=== PATIENT | male | born 1990 | race Caucasian/White ===

== ENCOUNTER 2023-06-09 21:33 | Emergency (ER) | payer OTHER ==
--- NOTE | 2023-06-09 21:57 | ED ---
Abdominal Pain HPI - General Source: patient, family, RN notes reviewed <Nadege Bonner - Last Filed: 06/09/23 21:56> - General Source: patient, family, RN notes reviewed Mode of arrival: ambulatory Limitations: no limitations <Yao Lee - Last Filed: 06/11/23 14:44> - General Stated Complaint: Abdominal Pain Time Seen by Provider: 06/09/23 21:56 - History of Present Illness Initial Comments: Patient is a 32-year-old male presented ER with chief complaint of abdominal pain. Patient states he started experiencing indigestion earlier today and reports it moved up into his chest. Patient does endorse shortness of breath. Patient did take Tums without relief. Patient is very worried he is having a heart attack. Patient denies any fevers, chills, night sweats. (Nadege Bonner) 32-year-old male presents emergency Department chief complaint abdominal pain. Patient states it's burning sensation in his stomach that radiates up in his throat. Patient states that he did take some Tums which initially did not help but has helped. Patient became very anxious because of this. Patient denies any change in bowel habits states she is nauseated states that symptoms have worsen over the last 10 days when he eats. (Yao Lee) - Related Data Home Medications Medication Instructions Recorded Confirmed ARIPiprazole [Abilify] 10 mg PO BID 02/27/23 02/27/23 Divalproex ER [Depakote ER] 1,000 mg PO DAILY 02/27/23 02/27/23 QUEtiapine [SEROquel] 200 mg PO HS 02/27/23 02/27/23 Previous Rx's Medication Instructions Recorded QUEtiapine [SEROquel] 300 mg PO DAILY 30 Days #30 tab 03/04/23 Famotidine [Pepcid] 20 mg PO BID #28 tablet 06/10/23 Sucralfate [Carafate] 1 gm PO BID #20 tablet 06/10/23 Allergies Allergy/AdvReac Type Severity Reaction Status Date / Time Iodinated Contrast Media Allergy Rash/Hives Verified 06/09/23 22:02 iodine Allergy Rash/Hives Verified 06/09/23 22:02 Review of Systems ROS Other: All systems not noted in ROS Statement are negative. <Nadege Bonner - Last Filed: 06/09/23 21:56> ROS Other: All systems not noted in ROS Statement are negative. <Yao Lee - Last Filed: 06/11/23 14:44> ROS Statement: Those systems with pertinent positive or pertinent negative responses have been documented in the HPI. 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 History of Any Multi-Drug Resistant Organisms: None Reported Past Surgical History: No Surgical Hx Reported Past Anesthesia/Blood Transfusion Reactions: No Reported Reaction Past Psychological History: Anxiety, Depression, Schizoaffective Disorder Smoking Status: Current every day smoker Past Alcohol Use History: None Reported Past Drug Use History: None Reported <Nadege Bonner - Last Filed: 06/09/23 21:56> General Exam <Nadege Bonner - Last Filed: 06/09/23 21:56> Limitations: no limitations General appearance: alert, in no apparent distress Head exam: Present: atraumatic, normocephalic, normal inspection Respiratory exam: Present: normal lung sounds bilaterally. Absent: respiratory distress, wheezes, rales, rhonchi, stridor Cardiovascular Exam: Present: regular rate, normal rhythm, normal heart sounds. Absent: systolic murmur, diastolic murmur, rubs, gallop, clicks GI/Abdominal exam: Present: soft, tenderness (Epigastric), normal bowel sounds. Absent: distended, guarding, rebound, rigid Back exam: Absent: CVA tenderness (R), CVA tenderness (L) <Yao Lee - Last Filed: 06/11/23 14:44> - General Exam Comments Initial Comments: Visual Physical Exam Vital signs reviewed General: Well-appearing, nontoxic, no acute distress. Anxious Head: Normocephalic, atraumatic Eyes: PERRLA, EOMI ENT: Airway patent Chest: Nonlabored breathing Skin: No visual rash, normal skin tone Neuro: Alert and oriented 3 Musculoskeletal: No gross abnormalities (Nadege Bonner) Course Vital Signs 06/09/23 06/10/23 22:00 05:42 Temperature 97.6 F Pulse Rate 95 93 Respiratory 18 18 Rate Blood Pressure 123/70 120/80 O2 Sat by Pulse 98 98 Oximetry Medical Decision Making <Nadege Bonner - Last Filed: 06/09/23 21:56> - Lab Data Result diagrams: 06/09/23 22:45 06/09/23 22:45 - EKG Data -: EKG Interpreted by Me <Yao Lee - Last Filed: 06/11/23 14:44> - Medical Decision Making I performed the quick note portion of the exam. Electronically signed by Nadege Bonner PA-C (Nadege Bonner) Was pt. sent in by a medical professional or institution (MIRIAN Miranda, JOINER APPRENTICE, urgent care, hospital, or custodial...) When possible be specific @ -No Did you speak to anyone other than the patient for history (EMS, parent, family, police, friend...)? What history was obtained from this source @ -Mother who is a guardian providing past medical history Did you review nursing and triage notes (agree or disagree)? Why? @ -I reviewed and agree with nursing and triage notes Were old charts reviewed (outside hosp., previous admission, EMS record, old EKG, old radiological studies, urgent care reports/EKG's, custodial records)? Report findings @ -No old charts were reviewed Differential Diagnosis (chest pain, altered mental status, abdominal pain women, abdominal pain men, vaginal bleeding, weakness, fever, dyspnea, syncope, headache, dizziness, GI bleed, back pain, seizure, CVA, palpatations, mental health, musculoskeletal)? @ -Differential Abdominal Pain Men: Appendicitis, cholecystitis, diverticulosis, ischemic bowel, pancreatitis, hepatitis, UTI, gastroenteritis, AAA, incarcerated hernia, bowel obstruction, constipation, inflammatory bowel, hepatitis, peptic ulcer disease, splenic infarction, perforated viscus, testicular torsion, this is not meant to be an all-inclusive listn EKG interpreted by me (3pts min.). @ -None. X-rays interpreted by me (1pt min.). @ -[Chest x-ray 2 view shows no acute process. CT interpreted by me (1pt min.). @ -None done U/S interpreted by me (1pt. min.). @ -None done What testing was considered but not performed or refused? (CT, X-rays, U/S, labs)? Why? @ -None What meds were considered but not given or refused? Why? @ -None Did you discuss the management of the patient with other professionals (professionals i.e. DrKiera, PA, JOINER APPRENTICE, lab, RT, psych nurse, manager social responsibility, ingot weigher, teacher, training officer, immigration case manager)? Give summary @ -No Was smoking cessation discussed for >3mins.? @ -No Was critical care preformed (if so, how long)? @ -No Were there social determinants of health that impacted care today? How? (Homelessness, low income, unemployed, alcoholism, drug addiction, transportation, low edu. Level, literacy, decrease access to med. care, [place] [facility], rehab)? @ -No Was there de-escalation of care discussed even if they declined (Discuss DNR or withdrawal of care, Hospice)? DNR status @ -No What co-morbidities impacted this encounter? (DM, HTN, Smoking, COPD, CAD, Cancer, CVA, ARF, Chemo, Hep., AIDS, mental health diagnosis, sleep apnea, m orbid obesity)? @ -None Was patient admitted / discharged? Hospital course, mention meds given and route, prescriptions, significant lab abnormalities, going to OR and other pertinent info. @ -Discharge patient with a GI cocktail symptoms improved. Patient ultrasound is unremarkable. Patient we discharged on Pepcid, Carafate for GERD. He'll follow-up for Dr. Diamond for EGD. course Undiagnosed new problem with uncertain prognosis? @ -No Drug Therapy requiring intensive monitoring for toxicity (Heparin, Nitro, Insulin, Cardizem)? @ -No Were any procedures done? @ -No Diagnosis/symptom? @ -GERD Acute, or Chronic, or Acute on Chronic? @ -Acute Uncomplicated (without systemic symptoms) or Complicated (systemic symptoms)? @ -Uncomplicated Side effects of treatment? @ -No Exacerbation, Progression, or Severe Exacerbation? @ -No Poses a threat to life or bodily function? How? (Chest pain, USA, [place], pneumonia, PE, COPD, DKA, ARF, appy, cholecystitis, CVA, Diverticulitis, Homicidal, Suicidal, threat to staff... and all critical care pts) @ -No (Yao Lee) - Lab Data Lab Results 06/09/23 06/09/23 06/09/23 Range/Units 22:45 22:45 22:45 WBC 16.8 H (3.8-10.6) k/uL RBC 4.32 (4.30-5.90) m/uL Hgb 13.1 (13.0-17.5) gm/dL Hct 38.6 L (39.0-53.0) % MCV 89.4 (80.0-100.0) fL MCH 30.3 (25.0-35.0) pg MCHC 33.8 (31.0-37.0) g/dL RDW 14.5 (11.5-15.5) % Plt Count 381 (150-450) k/uL MPV 7.4 D-Dimer 0.47 (<0.60) mg/L FEU Sodium 139 (137-145) mmol/L Potassium 4.9 (3.5-5.1) mmol/L Chloride 100 (98-107) mmol/L Carbon Dioxide 23 (22-30) mmol/L Anion Gap 16 mmol/L BUN 20 (9-20) mg/dL Creatinine 0.95 (0.66-1.25) mg/dL Est GFR (CKD-EPI)AfAm >90 (>60 ml/min/1.73 sqM) Est GFR (CKD-EPI)NonAf >90 (>60 ml/min/1.73 sqM) Glucose 124 H (74-99) mg/dL Calcium 9.8 (8.4-10.2) mg/dL Total Bilirubin 0.6 (0.2-1.3) mg/dL AST 122 H (17-59) U/L ALT 61 H (4-49) U/L Alkaline Phosphatase 106 (38-126) U/L Troponin I (0.000-0.034) ng/mL Total Protein 8.3 H (6.3-8.2) g/dL Albumin 4.4 (3.5-5.0) g/dL Amylase 55 (30-110) U/L Lipase 82 (23-300) U/L Influenza Type A (PCR) (Not Detectd) Influenza Type B (PCR) (Not Detectd) RSV (PCR) (Not Detectd) SARS-CoV-2 (PCR) (Not Detectd) 06/09/23 06/09/23 Range/Units 22:45 22:45 WBC (3.8-10.6) k/uL RBC (4.30-5.90) m/uL Hgb (13.0-17.5) gm/dL Hct (39.0-53.0) % MCV (80.0-100.0) fL MCH (25.0-35.0) pg MCHC (31.0-37.0) g/dL RDW (11.5-15.5) % Plt Count (150-450) k/uL MPV D-Dimer (<0.60) mg/L FEU Sodium (137-145) mmol/L Potassium (3.5-5.1) mmol/L Chloride (98-107) mmol/L Carbon Dioxide (22-30) mmol/L Anion Gap mmol/L BUN (9-20) mg/dL Creatinine (0.66-1.25) mg/dL Est GFR (CKD-EPI)AfAm (>60 ml/min/1.73 sqM) Est GFR (CKD-EPI)NonAf (>60 ml/min/1.73 sqM) Glucose (74-99) mg/dL Calcium (8.4-10.2) mg/dL Total Bilirubin (0.2-1.3) mg/dL AST (17-59) U/L ALT (4-49) U/L Alkaline Phosphatase (38-126) U/L Troponin I <0.012 (0.000-0.034) ng/mL Total Protein (6.3-8.2) g/dL Albumin (3.5-5.0) g/dL Amylase (30-110) U/L Lipase (23-300) U/L Influenza Type A (PCR) Not Detected (Not Detectd) Influenza Type B (PCR) Not Detected (Not Detectd) RSV (PCR) Not Detected (Not Detectd) SARS-CoV-2 (PCR) Not Detected (Not Detectd) - EKG Data EKG Comments: EKG performed at 22:34 sinus tachycardia rate 16 DE 150 QRS 96 QT/QTC 329/391 (Yao Lee) Disposition <Nadege Bonner - Last Filed: 06/09/23 21:56> Is patient prescribed a controlled substance at d/c from ED?: No Time of Disposition: 06:56 <Yao Lee - Last Filed: 06/11/23 14:44> Clinical Impression: GERD (gastroesophageal reflux disease) Disposition: HOME SELF-CARE Condition: Stable Instructions (If sedation given, give patient instructions): Diet for Stomach Ulcers and Gastritis (ED), GERD (Gastroesophageal Reflux Disease) (ED) Additional Instructions: Please return to the Emergency Department if symptoms worsen or any other concerns. Prescriptions: Sucralfate [Carafate] 1 gm PO BID #20 tablet Famotidine [Pepcid] 20 mg PO BID #28 tablet [facility] [Primary Care Provider] - 1-2 days Rama Iglesias MD [STAFF PHYSICIAN] - 1-2 days
[2023-06-09 22:09] VITALS: RESP 18; TEMP 97.6
--- NOTE | 2023-06-09 23:04 | XR ---
EXAM: XR Chest, 2 Views CLINICAL HISTORY: ITS.REASON XR Reason: angina TECHNIQUE: Frontal and lateral views of the chest. COMPARISON: No relevant prior studies available. FINDINGS: Lungs: Unremarkable. No consolidation. Pleural space: Unremarkable. No pneumothorax. Heart: Unremarkable. No cardiomegaly. Mediastinum: Unremarkable. Normal mediastinal contour. Bones/joints: Unremarkable. No acute fracture. IMPRESSION: No pneumonia.
[2023-06-09 23:14] LABS: HCT 38.6 % (39.0-53.0); HGB 13.1 gm/dL (13.0-17.5); MCH 30.3 pg (25.0-35.0); MCHC 33.8 g/dL (31.0-37.0); MCV 89.4 fL (80.0-100.0); Mean Platelet Volume 7.4; Platelet Count 381 k/uL (150-450); RBC 4.32 m/uL (4.30-5.90); RDW 14.5 % (11.5-15.5); WBC 16.8 k/uL (3.8-10.6)
[2023-06-09 23:31] LABS: ALT 61 U/L (4-49); African American GFR (CKD) >90 (>60 ml/min/1.73 sqM); Albumin 4.4 g/dL (3.5-5.0); Amylase 55 U/L (30-110); Anion Gap 16 mmol/L; Blood Urea Nitrogen 20 mg/dL (9-20); Calcium 9.8 mg/dL (8.4-10.2); Carbon Dioxide 23 mmol/L (22-30); Chloride 100 mmol/L (98-107); Glucose 124 mg/dL (74-99); Lipase 82 U/L (23-300); Non-African American GFR(CKD) >90 (>60 ml/min/1.73 sqM); Sodium 139 mmol/L (137-145); Total Bilirubin 0.6 mg/dL (0.2-1.3); Total Protein 8.3 g/dL (6.3-8.2)
[2023-06-09 23:56] LABS: AST 122 U/L (17-59); Alkaline Phosphatase 106 U/L (38-126); Potassium 4.9 mmol/L (3.5-5.1)
[2023-06-10 05:51] VITALS: BP 120/80; PULSE 93
[2023-06-10] MEDS ORDERED: MAG HYDROX/AL HYDROX/SIMETH 30 ML, HYOSCYAMINE ELIXIR 10 ML PO STA ×2 (06:19)
[2023-06-10] MEDS ORDERED: FAMOTIDINE 20 MG TAB PO STA (06:55)
== END 2023-06-10 07:02 | disposition home or self-care (01) ==
LOC: EC 21:33
DX: K21.9 Gastro-esophageal reflux disease without esophagitis (principal); R00.0 Tachycardia, unspecified; F41.9 Anxiety disorder, unspecified; F32.A Depression, unspecified; F17.200 Nicotine dependence, unspecified, uncomplicated; Z79.899 Other long term (current) drug therapy; Z91.041 Radiographic dye allergy status; Z20.822 Contact with and (suspected) exposure to COVID-19
CPT/HCPCS: 36415; 71046; 80053; 82150; 83690; 84484; 85027; 85379; 87636; 93005; 99284

== ENCOUNTER 2023-10-29 20:17 | Emergency (ER) | payer OTHER ==
[2023-10-29 20:43] VITALS: RESP 19; TEMP 98.2
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
[2023-10-29] MEDS: ACETAMINOPHEN TAB 500 MG TAB PO STA (21:47)
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
[2023-10-29] MEDS: IBUPROFEN 800 MG TAB PO STA (23:21)
[2023-10-29] MEDS: HYDROmorphone 0.5 MG/0.5 ML SYRINGE IM STA (23:23)
[2023-10-30 00:08] VITALS: BP 136/92; PULSE 100
== END 2023-10-30 00:52 | disposition home or self-care (01) ==
LOC: EC 20:17
DX: S00.81XA Abrasion of other part of head, initial encounter (principal); M54.6 Pain in thoracic spine; M54.50 Low back pain, unspecified; F17.200 Nicotine dependence, unspecified, uncomplicated; Z91.041 Radiographic dye allergy status; Z88.8 Allergy status to other drugs, medicaments and biological substances; V53.6XXA Passenger in pick-up truck or van injured in collision with car, pick-up truck or van in traffic accident, initial encounter; Y92.410 Unspecified street and highway as the place of occurrence of the external cause
CPT/HCPCS: 72070; 72100; 73030; 71046; 72125; 70450; 99285; 96372; J1170